=== PATIENT | male | born 1955 | race Caucasian/White ===

== ENCOUNTER 2018-06-04 21:11 | Inpatient (IN) | payer MEDICARE ==
[2018-06-04] MEDS ORDERED: Lorazepam 2 MG/ML VIAL ONE (22:38)
[2018-06-04 23:22] LABS: Troponin I 0.057 ng/mL (< 0.028)
[2018-06-04] MEDS ORDERED: Bisacodyl 5 MG TAB PO PRN (23:23)
[2018-06-04] MEDS ORDERED: Ondansetron ODT 4 MG TAB PO PRN (23:23)
[2018-06-04] MEDS ORDERED: Senokot S 8.6-50 MG TAB PO PRN (23:23)
[2018-06-04] MEDS ORDERED: Acetaminophen 325 MG TAB PO PRN (23:23)
[2018-06-04] MEDS ORDERED: Ondansetron PF 4 MG/2 ML Vial IVP PRN (23:23)
[2018-06-04] MEDS ORDERED: Calcium Carbonate 500 MG ChewTAB PO PRN (23:23)
[2018-06-05] MEDS: Sodium Chloride 0.9% 1,000 ML IV SCH ×3 (01:43→21:36)
[2018-06-05 02:06] VITALS: BMI 28.8
[2018-06-05 02:30] LABS: #Eosinphils 0.3 thou/uL (0.0-0.7); #Lymphocytes 1.1 thou/uL (1.20-3.40); #Monocytes 0.7 thou/uL (0.11-0.59); #Neutrophils 7.7 thou/uL (1.40-6.50); %Basophils 0.3 % (0.0-1.0); %Eosinophils 2.8 % (0.0-10.0); %Lymphocytes 11.2 % (21.0-51.0); %Monocytes 6.6 % (0.0-10.0); %Neutrophils 79.1 % (42.0-75.0); Hemoglobin 12.3 g/dL (14.0-18.0); Mean Corpuscular HGB CONC 35.2 g/dL (32.0-36.0); Mean Corpuscular Hemoglobin 30.2 pg (27.0-31.0); Mean Corpuscular Volume 85.7 fL (78.0-98.0); Mean Platelet Volume 5.5 fL (7.4-10.4); Platelet Count 191 thou/uL (130-400); RBC Distribution Width 11.4 % (11.5-14.5); Red Blood Cell (RBC) Count 4.08 mill/uL (4.70-6.10); White Blood Cell (WBC) Count 9.8 thou/uL (4.8-10.8)
[2018-06-05 02:57] LABS: Albumin 3.5 g/dL (3.4-4.8); Anion Gap 13 mmol/L (10-20); BUN (Urea Nitrogen) 50 mg/dL (8.4-25.7); BUN/Creatinine Ratio 24.88; Calc. Creatinine Clearance 48 mL/min (70-130); Calcium 8.9 mg/dL (7.8-10.44); Carbon Dioxide 21 mmol/L (23-31); Chloride 108 mmol/L (98-107); Estimated GFR-MDRD 34; Glucose 236 mg/dL (80-115); Phosphorus 2.8 mg/dL (2.3-4.7); Potassium 4.1 mmol/L (3.5-5.1); Sodium 138 mmol/L (136-145)
[2018-06-05] MEDS ORDERED: Dextrose 50% Abboject 50 ML SYRINGE IVP PRN (05:33)
[2018-06-05] MEDS ORDERED: HumaLOG 300 UNITS/3 ML VIAL SC PRN (05:33)
[2018-06-05] MEDS ORDERED: Dextrose 5% in Water 1,000 ML IV PRN (05:33)
[2018-06-05 06:21] LABS: Hemoglobin A1c 5.8 % (4.0-6.0)
[2018-06-05] MEDS ORDERED: Famotidine 20 MG TAB PO SCH (09:00)
[2018-06-05] MEDS ORDERED: Famotidine/PF 20 mg/2ml Vial SLOW IVP SCH (09:00)
[2018-06-05] MEDS: Famotidine 20 MG TAB PO SCH (09:11)
[2018-06-05] MEDS: Enoxaparin Sodium 30 MG/0.3 ML SYRINGE SC SCH (09:12)
[2018-06-05] MEDS: Famotidine/PF 20 mg/2ml Vial SLOW IVP SCH (09:12)
[2018-06-05] MEDS ORDERED: Dutasteride 0.5 MG CAP PO SCH (12:30)
[2018-06-05] MEDS ORDERED: Doxazosin 2 MG TAB PO SCH (12:30)
[2018-06-05] MEDS ORDERED: Atenolol 50 MG TAB PO SCH (12:30)
[2018-06-05] MEDS: cefTRIAXone\\ROCEPHIN 1 GM in Sodium Chloride 0.9% 100 ML IVPB SCH (18:18)
--- NOTE | 2018-06-06 00:35 | CON ---
DATE OF CONSULTATION: CONSULTING PHYSICIAN: Jordana Yun MD REQUESTING PHYSICIAN: Dr. Israel Brooks. REASON FOR CONSULTATION: Acute kidney injury. IMPRESSION: Acute kidney injury, this is likely in the context of obstructive uropathy. PLAN: 1. The patient already has Varner catheter. The patient seems to be having gross hematuria. Therefore, we will start this patient on three-way bladder irrigation protocol. 2. Renally dose medications for low GFR. 3. The patient benefit from urologic intervention. HISTORY: Is that of a 62-year-old gentleman, who was sent in because of abnormal labs of renal failure. The patient on clinical evaluation was also noted to have evidence of obstructive uropathy as evidenced by hydronephrosis. As a result of these findings, decision has been taken to involve Renal in the management of this case. On presentation, the patient noted with a creatinine of about 2 and BUN of 15. PAST MEDICAL HISTORY: Significant for mental retardation and hypertension. MEDICATION: Reviewed and as documented on [facility]. ALLERGIES: NO KNOWN DRUG ALLERGIES. FAMILY HISTORY: Significant for mental retardation, otherwise noted in history of present illness. REVIEW OF SYSTEMS: Is as documented in the body of history. All other systems were reviewed and found not to be significantly related to presenting illness. PHYSICAL EXAMINATION: GENERAL: On examination, the patient was found not to be in any obvious distress. VITAL SIGNS: Noted with the following vital signs, afebrile, temperature 97.8, pulse 126, respiratory rate of 17, O2 sats are 97% with a blood pressure 141/87. HEENT: Examination unremarkable. Moist oral mucosa. NECK: Was supple. No conjunctival injection or icterus. CARDIOVASCULAR SYSTEM: First and second heart sounds were heard. RESPIRATORY SYSTEM: Clear to auscultation. DIGESTIVE SYSTEM: Revealed a benign abdomen with positive bowel sounds. EXTREMITIES: No peripheral edema. UROGENITAL SYSTEM: Examination review of the gross hematuria and a Varner catheter in the Varner bag. SUMMARY: A 62-year-old gentleman, who presented here with evidence of renal failure in the context of obstructive uropathy. Thank you for this consultation. Please pay attention to possible potential postobstructive diuretic phase. Job ID: [id number]
[2018-06-06] MEDS ORDERED: cefTRIAXone\\ROCEPHIN 1 GM in Sodium Chloride 0.9% 100 ML IVPB SCH (02:00)
[2018-06-06] MEDS: Sodium Chloride 0.9% 1,000 ML IV SCH ×4 (02:25→23:30)
[2018-06-06] MEDS ORDERED: Prevnar 13-Val Conj/PF 0.5 ML SYRINGE IM ONE (09:00)
[2018-06-06] MEDS: Famotidine 20 MG TAB PO SCH (09:01)
[2018-06-06] MEDS: Multivit, Therapeutic 1 TAB PO SCH (09:01)
[2018-06-06] MEDS: Dutasteride 0.5 MG CAP PO SCH (09:01)
[2018-06-06] MEDS: Atenolol 50 MG TAB PO SCH (09:01)
[2018-06-06] MEDS: Doxazosin 2 MG TAB PO SCH (09:01)
[2018-06-06] MEDS: Famotidine/PF 20 mg/2ml Vial SLOW IVP SCH (09:06)
[2018-06-06] MEDS: Enoxaparin Sodium 30 MG/0.3 ML SYRINGE SC SCH ×2 (09:09→09:18)
[2018-06-06 11:44] LABS: #Eosinphils 0.3 thou/uL (0.0-0.7); #Monocytes 0.6 thou/uL (0.11-0.59); %Basophils 0.3 % (0.0-1.0); %Eosinophils 3.7 % (0.0-10.0); %Lymphocytes 11.2 % (21.0-51.0); %Neutrophils 77.8 % (42.0-75.0); Hemoglobin 11.7 g/dL (14.0-18.0); Mean Corpuscular HGB CONC 34.1 g/dL (32.0-36.0); Mean Corpuscular Hemoglobin 29.9 pg (27.0-31.0); Mean Corpuscular Volume 87.9 fL (78.0-98.0); Mean Platelet Volume 5.6 fL (7.4-10.4); Platelet Count 180 thou/uL (130-400); RBC Distribution Width 11.4 % (11.5-14.5)
[2018-06-06 12:36] LABS: Anion Gap 10 mmol/L (10-20); BUN (Urea Nitrogen) 13 mg/dL (8.4-25.7); Calc. Creatinine Clearance 98 mL/min (70-130); Calcium 8.6 mg/dL (7.8-10.44); Carbon Dioxide 21 mmol/L (23-31); Chloride 112 mmol/L (98-107); Estimated GFR-MDRD 77; Glucose 153 mg/dL (80-115); Magnesium 1.8 mg/dL (1.6-2.6); Potassium 4.2 mmol/L (3.5-5.1); Sodium 139 mmol/L (136-145)
--- NOTE | 2018-06-06 15:54 | PDOC.PN ---
- Subjective Encounter Start Date: 06/06/18 Encounter Start Time: 11:55 follow up for BPH with obstruction, KAYLA, MR Afebrile no acute events. awaiting urology consultation. No N/V/D/C, dilshad PO All systems reviewed and neg x as above - Objective Resuscitation Status - Order Detail: 06/04/18 23:28 Resuscitation Status Routine Resuscitation Status: FULL: Full Resuscitation MAR Reviewed: Yes Vital Signs & Weight: Vital Signs (12 hours) Temp Pulse Resp BP Pulse Ox 06/06/18 11:55 98.7 F 92 16 155/80 H 97 06/06/18 08:00 97 06/06/18 07:33 98.5 F 86 16 143/80 H 96 06/06/18 04:00 98.4 F 86 19 117/66 94 L Weight Weight 201 lb 1.6 oz I&O: 06/05/18 06/06/18 06/07/18 06:59 06:59 06:59 Intake Total 1115 4000 Output Total 1300 3800 Balance -185 200 Result Diagrams: 06/06/18 11:19 06/06/18 11:19 Additional Labs: Accuchecks 06/06/18 06/06/18 06/05/18 10:46 05:49 20:53 POC Glucose 174 H 140 H 137 H 06/05/18 16:54 POC Glucose 113 H Phys Exam - Physical Examination Constitutional: NAD HEENT: PERRLA, moist MMs, sclera anicteric, oral pharynx no lesions Neck: no nodes, no JVD, supple, full ROM Respiratory: no wheezing, no rales, no rhonchi, clear to auscultation bilateral Cardiovascular: RRR, no significant murmur, no rub Gastrointestinal: soft, non-tender, no distention, positive bowel sounds Musculoskeletal: no edema, pulses present Neurological: non-focal, normal sensation, moves all 4 limbs Lymphatic: no nodes Psychiatric: normal affect, A&O x 3 Skin: no rash, normal turgor, cap refill <2 seconds Dx/Plan (1) BPH loc w urin obs/LUTS Code(s): N40.1 - BENIGN PROSTATIC HYPERPLASIA WITH LOWER URINARY TRACT SYMP Status: Chronic (2) KAYLA (acute kidney injury) Code(s): N17.9 - ACUTE KIDNEY FAILURE, UNSPECIFIED Status: Acute (3) HTN (hypertension) Code(s): I10 - ESSENTIAL (PRIMARY) HYPERTENSION Status: Chronic Qualifiers: Hypertension type: essential hypertension Qualified Code(s): I10 - Essential (primary) hypertension - Plan cont current plan of care, plan discussed w/ family * . catheter, CBI, Cr improving, urology consulted, follow up
[2018-06-06] MEDS: cefTRIAXone\\ROCEPHIN 1 GM in Sodium Chloride 0.9% 100 ML IVPB SCH (18:42)
--- NOTE | 2018-06-06 20:48 | PRG ---
DATE OF SERVICE: 06/06/2018 SUBJECTIVE: The patient was seen and examined, seems to be doing much better, noted with the following vital signs. OBJECTIVE: VITAL SIGNS: Afebrile, temperature 98.4, pulse 84, respiratory rate of 16, O2 saturation 96%, blood pressure 130/80. HEENT: Unremarkable. CARDIOVASCULAR: First and second heart sounds are heard. RESPIRATORY: Clear to auscultation. DIGESTIVE SYSTEM: Revealed a benign abdomen with positive bowel sounds. EXTREMITIES: No peripheral edema. SKIN EXAMINATION: No new gross rash. LYMPHATICS: No peripheral lymphadenopathy. IMPRESSION: Acute kidney injury in the context of obstructive uropathy. PLAN: 1. Continue current renal supportive measures. 2. Urologist evaluation pending. 3. Further management to be dependent on the clinical course. Job ID: [id number]
[2018-06-07 04:59] LABS: #Eosinphils 0.4 thou/uL (0.0-0.7); #Lymphocytes 1.4 thou/uL (1.20-3.40); #Monocytes 0.6 thou/uL (0.11-0.59); #Neutrophils 6.6 thou/uL (1.40-6.50); %Basophils 0.3 % (0.0-1.0); %Eosinophils 4.5 % (0.0-10.0); %Lymphocytes 15.6 % (21.0-51.0); %Monocytes 6.9 % (0.0-10.0); %Neutrophils 72.7 % (42.0-75.0); Hemoglobin 11.2 g/dL (14.0-18.0); Mean Corpuscular HGB CONC 34.8 g/dL (32.0-36.0); Mean Corpuscular Hemoglobin 30.4 pg (27.0-31.0); Mean Corpuscular Volume 87.2 fL (78.0-98.0); Mean Platelet Volume 5.2 fL (7.4-10.4); Platelet Count 181 thou/uL (130-400); RBC Distribution Width 11.3 % (11.5-14.5); Red Blood Cell (RBC) Count 3.69 mill/uL (4.70-6.10); White Blood Cell (WBC) Count 9.1 thou/uL (4.8-10.8)
[2018-06-07 05:14] LABS: Anion Gap 10 mmol/L (10-20); BUN (Urea Nitrogen) 11 mg/dL (8.4-25.7); Calc. Creatinine Clearance 108 mL/min (70-130); Calcium 8.4 mg/dL (7.8-10.44); Carbon Dioxide 22 mmol/L (23-31); Chloride 112 mmol/L (98-107); Estimated GFR-MDRD 86; Glucose 113 mg/dL (80-115); Magnesium 1.6 mg/dL (1.6-2.6); Potassium 4.2 mmol/L (3.5-5.1); Sodium 140 mmol/L (136-145)
[2018-06-07] MEDS: Atenolol 50 MG TAB PO SCH (08:57)
[2018-06-07] MEDS: Multivit, Therapeutic 1 TAB PO SCH (08:57)
[2018-06-07] MEDS: Famotidine 20 MG TAB PO SCH (08:57)
[2018-06-07] MEDS: Dutasteride 0.5 MG CAP PO SCH (08:57)
[2018-06-07] MEDS: Enoxaparin Sodium 30 MG/0.3 ML SYRINGE SC SCH (08:58)
[2018-06-07] MEDS: Famotidine/PF 20 mg/2ml Vial SLOW IVP SCH (08:58)
[2018-06-07] MEDS: Doxazosin 2 MG TAB PO SCH (09:01)
[2018-06-07] MEDS: Sodium Chloride 0.9% 1,000 ML IV SCH (09:42)
--- NOTE | 2018-06-07 11:32 | CON ---
DATE OF CONSULTATION: 06/06/2018 REASON FOR CONSULTATION: Gross hematuria and urinary retention. HISTORY OF PRESENT ILLNESS: Mr. Vincent is a 62-year-old male with history of BPH in the past. He is a patient of Dr. Vazquez, per his primary resident caregiver. He has a history of mental retardation and the majority of the history is obtained from nursing as well as the electronic health record. The patient was admitted for acute kidney injury with a creatinine of 2 and BUN of 15. He had imaging demonstrated distended bladder with bilateral hydroureteronephrosis. A Varner catheter was placed and drained a significant amount of residual urine. He developed some gross hematuria after this. The Varner was exchanged for 3-way Varner catheter and CBI was initiated. This began to clear. There has been minimal clot. The patient denies any pain. His renal function has improved. No other complaints. REVIEW OF SYSTEMS: Unable to obtain secondary to the patient's condition. PAST MEDICAL HISTORY: Mental retardation, hypertension, BPH. PAST SURGICAL HISTORY: None reported. MEDICATIONS: His home medications are reviewed as documented in [facility]. There are no changes. FAMILY HISTORY: Noncontributory. SOCIAL HISTORY: No alcohol. No smoking. ALLERGIES: NO KNOWN DRUG ALLERGIES. PHYSICAL EXAMINATION: VITAL SIGNS: Temperature is 98.4, pulse 76, respirations 18, oxygen saturation 95% on room air, blood pressure 140/78. GENERAL: He is awake, alert, in no apparent distress. HEENT: Normocephalic, atraumatic. CARDIOVASCULAR: Regular rate and rhythm. PULMONARY: Breathing unlabored. ABDOMEN: Soft, nontender/nondistended. No masses or organomegaly. No suprapubic tenderness to palpation. No CVA tenderness. GENITOURINARY: A 3-way Varner catheter in place, draining clear pink urine on low-rate CBI. Normal penis, scrotum normal, testes palpably normal bilaterally. EXTREMITIES: Warm and well perfused, no edema. NEUROLOGIC: No focal deficits. LABORATORY DATA: Hemoglobin 11.7, hematocrit 34.2. Hemoglobin from 06/05/2018 was 12.3 and hematocrit was 35.0. Chemistries, BUN 13, creatinine 0.98. ASSESSMENT: A 62-year-old male with urinary retention, acute kidney injury, gross hematuria. PLAN: I reviewed potential etiologies of the urinary retention and gross hematuria. Urinary retention likely secondary to bladder outlet obstruction related to BPH. The patient takes both doxazosin as well as dutasteride. He should continue these and he should be discharged on these when appropriate. His gross hematuria seems to be improving. At this point, there is no indication for acute intervention. I would recommend his Varner catheter remain in place. This can be managed as an outpatient for further workup of his bladder outlet obstruction as well as his gross hematuria. He sees Dr. Vazquez, as an outpatient and he can follow up with him. Thank you for allowing me to participate in the care of this patient. Job ID: [id number]
[2018-06-07 12:31] VITALS: BP 144/80; TEMP 99.6
--- NOTE | 2018-06-07 13:04 | PRG ---
DATE OF SERVICE: 06/07/2018 SUBJECTIVE: The patient is doing well. His hematuria has resolved. He has been off CBI since this morning. No manual irrigation of Varner catheter required. No other complaints. OBJECTIVE: VITAL SIGNS: Temperature 99.2, pulse 94, respirations 16, oxygen saturation 95% on room air, and blood pressure 147/76. GENERAL: Alert and oriented x3, in no apparent distress. CARDIOVASCULAR: Regular rate and rhythm. PULMONARY: Breathing unlabored. ABDOMEN: Soft, nontender/nondistended. No suprapubic tenderness to palpation. No CVA tenderness. GENITOURINARY: Three-way Varner catheter in place, draining clear yellow urine. LABORATORY DATA: Hemoglobin 11.2, hematocrit 32.2. Hemoglobin from 06/06/2018 is 11.7 and hematocrit 34.2. Creatinine 0.89. ASSESSMENT: A 62-year-old male with benign prostatic hyperplasia with bladder outlet obstruction, urinary retention, acute kidney injury, and gross hematuria. PLAN: The patient's hematuria has resolved. Varner catheter is now draining a clear yellow urine. It is unclear for certain whether he sees Dr. Vazquez as an outpatient, although according to the nursing, he spoke with his primary progressive care nurse, he does. The patient should be discharged to home when clinically ready, otherwise with his Varner catheter in place. Continue tamsulosin and Avodart. He can follow up with Dr. Vazquez, sometime this week or myself, if he truly does not see Dr. Vazquez as an outpatient. Thank you for allowing me to participate in the care of this patient. Job ID: [id number]
--- NOTE | 2018-06-07 22:47 | HP ---
PRIMARY CARE PHYSICIAN: Unknown. TIME OF SERVICE: 11:30. CHIEF COMPLAINT: Abnormal lab work. HISTORY OF PRESENT ILLNESS: Mr. Vincent is a 62-year-old gentleman with a history of BPH, hypertension, and mental retardation, who has had some chronic kidney issues. He had some labs drawn for workup and was notified by his medical team that he needed to go to the ER for abnormal labs. Apparently, his creatinine was 7.29 with a BUN around 130, so he was taken to the ER for evaluation. There he was noted to have a mildly elevated troponin, urinary retention. Denies any dysuria or abdominal pain. No fevers or chills. No nausea, vomiting, diarrhea, or constipation. No cough or sputum production. In the emergency department, a Varner catheter was placed with a large volume removed. He is feeling better and had no complaints. PAST MEDICAL HISTORY: 1. Mental retardation. 2. BPH. 3. Hypertension. After talking to his caregiver, the patient has been on medications for his BPH, but has stopped taking them, was too scared to come to the doctor to get a refill. PAST SURGICAL HISTORY: Hernia repair. HOME MEDICATIONS: 1. Atenolol 50 mg p.o. daily. 2. Doxazosin 8 mg p.o. daily, he ran out. 3. Multivitamin daily. ALLERGIES: NKDA. FAMILY HISTORY: Unknown. SOCIAL HISTORY: Negative habits x3. REVIEW OF SYSTEMS: Review of systems was attempted. The patient denied any other problems. Though I question the validity due to his mental status. PHYSICAL EXAMINATION: VITAL SIGNS: Temperature 97.8, pulse 126, blood pressure 141/87, respiratory rate 17, saturating 97% on room air. GENERAL: He is awake. He is alert. He is oriented to person, appears to be in no acute distress. HEENT: Normocephalic and atraumatic. Pupils are equal, round, and reactive to light bilaterally. Mucous membranes are moist. There are no visible lesions. There is no thrush. NECK: Supple. There is no lymphadenopathy, JVD, or thyromegaly. Normal carotid upstroke. LUNGS: Clear with good air movement. Symmetric chest excursion. No prolonged expiratory phase. No wheezes, rales, or rhonchi. CARDIOVASCULAR: Normal S1 and S2. He is tachycardic and regular. Do not appreciate murmurs. ABDOMEN: Soft. It is distended, but nontender. He has good bowel sounds in all 4 quadrants. EXTREMITIES: No cyanosis or clubbing. Trace pedal edema. SKIN: Negative for rash or lesions. MUSCULOSKELETAL: Normal to inspection. Large joints appear normal. There is no evidence of inflammation or palpable effusions NEUROLOGIC: Cranial nerves II through XII are grossly intact. There are no focal deficits. Normal speech pattern. LABORATORY DATA: Sodium 138, potassium 4.1, chloride 108, bicarb 21, BUN 50, creatinine 2.01 on admission and down from 2.43. Liver function within normal limits. CBC showed a white count of 9.8, hemoglobin 11.3, hematocrit 35.0, and platelet count is 191,000. Troponin I was 0.057 and 0.040. IMAGING STUDIES: CT scan of the abdomen and pelvis showed bilateral hydronephrosis and hydroureter on the right more than the left and has bladder distention and increased prostate size. ASSESSMENT AND PLAN: 1. Benign prostatic hyperplasia with lower urinary tract symptoms and obstruction. 2. Bilateral hydronephrosis and hydroureter. 3. Acute kidney injury. 4. Hypertension. 5. Mental retardation. Continue his catheter in place. We will get urologic evaluation. Renal think it is all due to the acute kidney injury, though I think it is all postobstructive. Should see resolution quickly. In the meantime, we will dose his medicines renally. Job ID: [id number]
== END 2018-06-07 14:43 | disposition home or self-care (01) | DRG 683 ==
LOC: ERS 21:11 → 2NO 06-05 00:47
PROVIDERS: ADMIT Internal Medicine; ATTEND Internal Medicine
DX: N17.9 Acute kidney failure, unspecified (principal); N13.8 Other obstructive and reflux uropathy; I12.9 Hypertensive chronic kidney disease with stage 1 through stage 4 chronic kidney disease, or unspecified chronic kidney disease; N18.9 Chronic kidney disease, unspecified; F79 Unspecified intellectual disabilities; N40.1 Benign prostatic hyperplasia with lower urinary tract symptoms; N13.30 Unspecified hydronephrosis; R33.8 Other retention of urine; R31.0 Gross hematuria
CPT/HCPCS: 36415; 36416; 51702; 80048; 80053; 80061; 80069; 81003; 81015; 83036; 83735; 84443; 84484; 85025; 86038; 86140; 86225; 87491; 87591; 90471; 90670; 96374; G0009; J0696; J1650; J2060; J7050; S0028

== ENCOUNTER 2018-07-14 12:09 | Emergency (ER) | payer MEDICARE ==
[2018-07-14] MEDS ORDERED: Dexamethasone 10 MG/ML VIAL ONE (13:38)
[2018-07-14] MEDS ORDERED: Polyvinyl Alcohol 1.4%/Povidone 0.6% Opth Drops R EYE SCH (14:00)
[2018-07-14] MEDS ORDERED: valACYclovir 500 MG TAB PO SCH (14:00)
--- NOTE | 2018-07-14 15:01 | CT ---
NONCONTRAST CT HEAD: DATE: 07/14/2018. HISTORY: Left-sided facial droop for 48 hours. COMPARISON: None available. FINDINGS: There are scattered low-density areas seen in the periventricular white matter greatest adjacent to t he atria of each lateral ventricle and in the anterior right frontal lobe periventricular white matte r. There is no evidence of an acute cortical infarction, hemorrhage, mass effect, or midline shift. Ventricular system is normal in size, shape, and position. There is a mucous retention cyst in the left sphenoid sinus. The remainder of the visualized paranasal sinuses as well as mastoid air cells are clear. The calvarial structures do appear intact. IMPRESSION: 1. No acute intracranial abnormality is demonstrated. 2. Findings likely attributable to chronic small-vessel ischemic changes. POS: RAYMOND
== END 2018-07-14 14:30 | disposition home or self-care (01) ==
LOC: ERS 12:09
DX: G51.0 Bell's palsy (principal); I10 Essential (primary) hypertension
CPT/HCPCS: 70450; J1100

== ENCOUNTER 2018-07-29 02:48 | Outpatient (CLI) | payer MEDICARE ==
[2018-07-29 13:28] LABS: Hemoglobin 13.9 g/dL (14.0-18.0); Mean Corpuscular HGB CONC 33.3 g/dL (32.0-36.0); Mean Corpuscular Hemoglobin 30.2 pg (27.0-31.0); Mean Corpuscular Volume 90.9 fL (78.0-98.0); Mean Platelet Volume 6.4 fL (7.4-10.4); Platelet Count 127 thou/uL (130-400); RBC Distribution Width 15.2 % (11.5-14.5); Red Blood Cell (RBC) Count 4.61 mill/uL (4.70-6.10); White Blood Cell (WBC) Count 7.7 thou/uL (4.8-10.8)
[2018-07-29 13:41] LABS: PTT 32.5 SEC (22.9-36.1); Prothrombin Time 13.5 SEC (12.0-14.7)
[2018-07-29 14:04] LABS: Anion Gap 16 mmol/L (10-20); BUN (Urea Nitrogen) 19 mg/dL (8.4-25.7); Calc. Creatinine Clearance 0 mL/min (70-130); Calcium 9.8 mg/dL (7.8-10.44); Carbon Dioxide 21 mmol/L (23-31); Chloride 106 mmol/L (98-107); Estimated GFR-MDRD 81; Glucose 126 mg/dL (80-115); Potassium 4.3 mmol/L (3.5-5.1); Sodium 139 mmol/L (136-145)
--- NOTE | 2018-07-29 17:00 | EKG ---
Test Reason : Blood Pressure : / mmHG Vent. Rate : 098 BPM Atrial Rate : 098 BPM P-R Int : 140 ms QRS Dur : 116 ms QT Int : 364 ms P-R-T Axes : 070 -56 055 degrees QTc Int : 464 ms Normal sinus rhythm Incomplete right bundle branch block Left anterior fascicular block Nonspecific T wave abnormality Prolonged QT Abnormal ECG When compared with ECG of 29-SEP-2001 11:11, Left anterior fascicular block is now Present Incomplete right bundle branch block is now Present Confirmed by DR. Kristen CAMERON ([id number]) on 07/29/2018 4:59:51 PM Referred By: ESTHER Confirmed By:DR. Kristen CAMERON
== END 2018-07-29 02:49 | disposition home or self-care (01) ==
LOC: LABBT 02:48
PROVIDERS: ATTEND Urology
DX: Z01.818 Encounter for other preprocedural examination (principal); R33.9 Retention of urine, unspecified; N32.0 Bladder-neck obstruction
CPT/HCPCS: 80048; 85027; 85610; 85730; 87077; 87086; 93005; 93010